=== PATIENT | male | born 1985 | race Caucasian/White ===

== ENCOUNTER 2021-11-01 19:21 | Emergency (ER) | payer OTHER, SELFPAY ==
[2021-11-01 19:33] VITALS: BP 175/83; PULSE 103; RESP 18; TEMP 39.4; O2SAT 97; BMI 31.2
--- NOTE | 2021-11-01 20:55 | XRR_ITS ---
PROCEDURE INFORMATION: Exam: XR Chest Exam date and time: 11/01/2021 9:02 PM Age: 36 years old Clinical indication: Fever; Patient HX: 36-year-old male who states he was out in the sun all day. He May or May not have gotten too hot. He has a history of renal failure following dehydration a couple of years ago. He reports feeling quite hot, not being able to urinate, and that his bladder hurts. TECHNIQUE: Imaging protocol: Radiologic exam of the chest. Views: 1 view. COMPARISON: No relevant prior studies available. FINDINGS: Lungs: Unremarkable. No consolidation. Pleural spaces: Unremarkable. No pleural effusion. No pneumothorax. Heart/Mediastinum: Unremarkable. No cardiomegaly. Bones/joints: Unremarkable. XR/XR chest 1V portable [id number] IMPRESSION: No acute findings.
[2021-11-01 21:07] LABS: Basophils % 0.2 %; Eosinophils % 0.1 %; Hematocrit 44.9 % (42.0-52.0); Lymphocytes # 0.9 10^3/uL (0.8-4.8); Lymphocytes % 7.6 %; Mean Corpuscular HGB Conc 35.6 g/dL (30.0-36.0); Mean Corpuscular Hemoglobin 30.6 pg (28.0-34.0); Mean Corpuscular Volume 85.9 fl (80-94); Mean Platelet Volume 9.5 fL (7.4-10.4); Monocytes # 0.6 10^3/uL (0.2-0.9); Monocytes % 5.2 %; Neutrophils # 10.21 10^3/uL (1.8-7.7); Neutrophils % 86.6 %; Nucleated Red Blood Cells % 0 %; Platelet Count 205 10^3/cmm (130-400); Red Blood Count 5.23 10^6/uL (4.1-5.3); Red Cell Distribution Width 12.3 % (12.1-15.1); White Blood Count 11.8 10^3/uL (4.0-10.0)
[2021-11-01] MEDS: sodium chloride 0.9% 1,000 ML 999 ML IV (21:54)
[2021-11-01] MEDS: ondansetron 2 mg/ML SDV 2 mL 8 MG IVP (21:55)
[2021-11-01 21:57] LABS: Alanine Aminotransferase 29 U/L (0-41); Albumin Level 4.6 g/dL (3.5-5.2); Alkaline Phosphatase 89 IU/L (40-130); Aspartate Amino Transferase 22 U/L (0-40); Blood Urea Nitrogen 16 mg/dL (6-20); C Reactive Protein 103.2 mg/L (0.0-4.9); Calcium 8.6 mg/dL (8.5-10.5); Carbon Dioxide 21 mmol/L (22-29); Chloride 101 mmol/L (98-107); Creatine Phosphokinase 209 U/L (39-308); Globulin 2.6 g/dL (1.3-4.6); Glomerular Filtration Rate 62.5 mL/min (90-130); Glucose 106 mg/dL (65-115); Osmolality Calculated 284 mOsm/kg (285-295); Sodium 136 mmol/L (136-145); Total Bilirubin 2.2 mg/dL (0.15-1.2); Total Protein 7.2 g/dL (6.6-8.7)
--- NOTE | 2021-11-01 22:14 | ED_ITS ---
HPI - Male Genitourinary General: Chief complaint: Urogenital-Male Stated complaint: N/V/ urinary problems Time Seen by Provider: 11/01/21 20:33 Source: patient History of Present Illness: 36-year-old male who states he was out in the sun all day. He may or may not have gotten too hot. He has a history of renal failure following dehydration a couple of years ago. He reports feeling quite hot, not being able to urinate, and that his bladder hurts. He has had a couple of days of being out in the heat. He is concerned about his kidneys given his history MD Complaint: other Onset (ago): hour(s) Duration: constant Location: abdomen Radiation: abdomen Severity: moderate Quality: aching Relieving factors: none Exacerbating factors: none Associated symptoms: Reports nausea; Deny vomiting Review of Systems Const: Reports: fever(s) and body aches ENMT: Denies: throat pain Card: Denies: chest pain or palpitations Resp: Denies: dyspnea, productive cough or non-productive cough GI: Reports: abdominal pain and nausea; Denies: vomiting or hematemesis : Reports: difficulty urinating Skin/Breast: Reports: rash (sunburn) Neuro: Reports: headache(s) Physical Exam Const: GENERAL APPEARANCE: cooperative and ill appearing (mildly); not frail appearing HENMT: COMMON NORMALS: normocephalic, atraumatic and Normal external nose present HEAD & SCALP: normocephalic and atraumatic FACE & SINUS: normal facial exam and face symmetric NOSE: Normal external nose present Eye: COMMON NORMALS: Equal, round and reactive pupils present and EOMs intact bilaterally PUPIL: Yes Equal, round and reactive pupils present Chest: COMMONS NORMALS: normal inspection of the chest Resp: COMMON NORMALS: normal respiratory effort, No use of accessory muscles and clear to auscultation bilaterally AUSCULTATION: clear to auscultation bilaterally Cardio: COMMON NORMALS: regular rate and regular rhythm RATE: regular rate RHYTHM: regular rhythm GI: COMMON NORMALS: Normal to inspection, nondistended, normoactive bowel sounds present, Soft to palpation and non-tender PALPATION: Yes Soft to palpation Extremity: COMMON NORMALS: no pedal edema Neuro: AMADO COMA SCALE: document GCS findings [place] coma scale eye opening: Spontaneous [place] coma scale verbal response: Orientated [place] coma scale motor response: Obey commands [place] coma scale total score: 15 Psych: COMMON NORMALS: mental status grossly normal Skin: NARRATIVE SKIN EXAM: widespread sunburn Course Vital Signs: Vital signs: Vital Signs Temperature 102.9 F H 11/01/21 19:33 Pulse Rate 98 11/02/21 00:01 Respiratory Rate 18 11/02/21 00:01 Blood Pressure 119/74 11/02/21 00:01 Pulse Oximetry 97 11/02/21 00:01 [facility] - Male Medical Decision Making 36-year-old male with a history of renal failure in the past. He presents with aches, not feeling well, temperature of 102.9. Initially, and temperature came down to 100.9 with cooling measures, thought to be a heat required illness given his exposure today. Ice was taken away, and temperature returned to 102.9. This may be a febrile illness as opposed to heat exposure given a normal CK, creatinine of only 1.3 his white blood cell count is 11.8 with 86% neutrophils. Urinalysis is negative. Chest x-ray is negative for infiltrate. He has no nuchal rigidity. His bilirubin is 2.2 with no other elevation in liver enzymes. His CRP is 103. He will be allowed discharge, but given has fever, mild elevation of white count, and elevated CRP with a COVID-19 negative swab, he will be covered with antibiotics. He will aggressively orally hydrate for the next 48 hours. He will watch temperature closely. Lab Data : 11/01/21 20:50 11/01/21 20:50 Laboratory Results WBC 11.8 10^3/uL (4.0-10.0) H 11/01/21 20:50 RBC 5.23 10^6/uL (4.1-5.3) 11/01/21 20:50 Hgb 16.0 g/dL (11.7-16.6) 11/01/21 20:50 Hct 44.9 % (42.0-52.0) 11/01/21 20:50 MCV 85.9 fl (80-94) 11/01/21 20:50 MCH 30.6 pg (28.0-34.0) 11/01/21 20:50 MCHC 35.6 g/dL (30.0-36.0) 11/01/21 20:50 RDW 12.3 % (12.1-15.1) 11/01/21 20:50 Plt Count 205 10^3/cmm (130-400) 11/01/21 20:50 MPV 9.5 fL (7.4-10.4) 11/01/21 20:50 Neut % (Auto) 86.6 % 11/01/21 20:50 Lymph % (Auto) 7.6 % 11/01/21 20:50 [place] % (Auto) 5.2 % 11/01/21 20:50 Eos % (Auto) 0.1 % 11/01/21 20:50 Baso % (Auto) 0.2 % 11/01/21 20:50 Neut # (Auto) 10.21 10^3/uL (1.8-7.7) H 11/01/21 20:50 Lymph # (Auto) 0.9 10^3/uL (0.8-4.8) 11/01/21 20:50 [place] # (Auto) 0.6 10^3/uL (0.2-0.9) 11/01/21 20:50 Eos # (Auto) 0.0 10^3/uL (0.0-0.8) 11/01/21 20:50 Baso # (Auto) 0.0 10^3/uL (0.0-0.1) 11/01/21 20:50 Nucleated RBC % (auto) 0 % 11/01/21 20:50 Nucleated RBCs # 0.0 /100WBC 11/01/21 20:50 Sodium 136 mmol/L (136-145) 11/01/21 20:50 Potassium 4.0 mmol/L (3.5-5.1) 11/01/21 20:50 Chloride 101 mmol/L (98-107) 11/01/21 20:50 Carbon Dioxide 21 mmol/L (22-29) L 11/01/21 20:50 Anion Gap 18.0 (5-19) 11/01/21 20:50 BUN 16 mg/dL (6-20) 11/01/21 20:50 Creatinine 1.3 mg/dL (0.7-1.2) H 11/01/21 20:50 GFR Calculation 62.5 mL/min (90-130) L 11/01/21 20:50 Glucose 106 mg/dL (65-115) 11/01/21 20:50 Calculated Osmolality 284 mOsm/kg (285-295) L 11/01/21 20:50 Calcium 8.6 mg/dL (8.5-10.5) 11/01/21 20:50 Total Bilirubin 2.2 mg/dL (0.15-1.2) H 11/01/21 20:50 AST 22 U/L (0-40) 11/01/21 20:50 ALT 29 U/L (0-41) 11/01/21 20:50 Alkaline Phosphatase 89 IU/L (40-130) 11/01/21 20:50 Creatine Kinase 209 U/L (39-308) 11/01/21 20:50 C-Reactive Protein 103.2 mg/L (0.0-4.9) H 11/01/21 20:50 Total Protein 7.2 g/dL (6.6-8.7) 11/01/21 20:50 Albumin 4.6 g/dL (3.5-5.2) 11/01/21 20:50 Globulin 2.6 g/dL (1.3-4.6) 11/01/21 20:50 Urine Color Yellow (Yellow) 11/01/21 22:11 Urine Appearance Clear (CLEAR) 11/01/21 22:11 Urine pH 6 (5-7) 11/01/21 22:11 Ur Specific [place] 1.015 (1.005-1.030) 11/01/21 22:11 Urine Protein Neg (Negative) 11/01/21 22:11 Urine Glucose (UA) Norm (Normal) 11/01/21 22:11 Urine Ketones Negative (Negative) 11/01/21 22:11 Urine Blood Neg (Negative) 11/01/21 22:11 Urine Nitrate Negative (Negative) 11/01/21 22:11 Urine Bilirubin Neg (Negative) 11/01/21 22:11 Urine Urobilinogen Norm mg/dL (Negative) 11/01/21 22:11 Ur Leukocyte Esterase Negative (Negative) 11/01/21 22:11 SARS-CoV-2 Ag (Rapid) Negative (Negative) 11/01/21 22:52 Discharge Plan Discharge Patient Disposition: Home Clinical Impression: Fever Condition: Stable Prescriptions: New cefdinir 300 mg capsule 300 mg PO BID 5 Days Qty: 10 0RF Discharge Orders: Discharge ED (Routine); Ordered 11/01/21 Ordered By: Tomás Mcgarry Discharge Diet: Advance as tolerated Discharge Activity: Limit activity as instructed Patient Instructions: Fever in Adults (ED) Activity Restrictions/Additional Instructions: Antibiotics as directed, simply to cover for fever. Stay in a cool environment for the next 48 hours. Hydrate aggressively with clear nonalcoholic, noncaffein ated liquids. Monitor temperature closely, at least 3 times a day. Treat accordingly with Tylenol or ibuprofen. Return for continued fever despite 3-4 doses of antibiotics, vomiting liquids or medications, inability to control temperature, shortness of breath, worsening pain, worsening mental status, any other concerning symptoms. Coding Level of Care Code ED Hotbed Lever Operator for Cami Torre Exam Comprehensive
[2021-11-01 22:21] LABS: Add Urine Microscopic? NO; Charge for UA Resulting for Rev
[2021-11-01 22:22] VITALS: RESP 17
[2021-11-01] MEDS: morphine 4 mg/mL SDV 1 mL IVP (22:22)
[2021-11-01] MEDS: acetaminophen 500 mg Tablet 1000 MG PO (22:48)
[2021-11-01 22:50] LABS: Bilirubin Urine Neg (Negative); Blood Urine Neg (Negative); Glucose Urine UA Norm (Normal); Ketones Urine Negative (Negative); Leukocyte Esterase Urine Negative (Negative); Nitrate Urine Negative (Negative); Protein Urine Neg (Negative); Specific Gravity, Urine 1.015 (1.005-1.030); Urine Appearance Clear (CLEAR); Urine Color Yellow (Yellow); Urobilinogen Urine Norm (Negative); pH Urine 6 (5-7)
[2021-11-01 23:17] LABS: SARS Covid-2 Antigen Negative (Negative)
[2021-11-01] MEDS: cefdinir 300 MG CAPSULE PO (23:53)
[2021-11-02 00:01] VITALS: BP 119/74; PULSE 98; RESP 18; O2SAT 97
== END 2021-11-02 00:03 | disposition home or self-care (01) ==
PROVIDERS: Emergency Provider Emergency Medicine
DX: R50.9 Fever, unspecified (principal)
CPT/HCPCS: 71045; 80053; 81003; 82550; 85025; 86140; 87426; 96361; 96374; 96375; 99284; J2270; J2405; J7030